=== PATIENT | female | born 1985 | race Asian ===

== ENCOUNTER 2021-10-29 18:49 | Emergency (ER) | payer OTHER ==
[~2021-10-29] VITALS: Ht 161.3 cm; Wt 46.9 kg
[2021-10-29 19:11] VITALS: BP 121/80
--- NOTE | 2021-10-29 19:52 | NUR ---
PT AMBULATED TO BED 12.
--- NOTE | 2021-10-29 19:59 | NUR ---
JOHN Moore to examine patient.
[2021-10-29] MEDS ORDERED: LIDOCAINE MPF 1% 10 MG/ML VIAL INJ ONE (20:10)
--- NOTE | 2021-10-29 21:52 | NUR ---
xr at bedside
[2021-10-29] MEDS ORDERED: ACET-10509 PO (22:00)
[2021-10-29 22:19] VITALS: BP 117/71
--- NOTE | 2021-10-29 22:19 | NUR ---
Patient discharged with v/s stable. Written and verbal after care instructions given and explained. Patient alert, oriented and verbalized understanding of instructions. Ambulatory with steady gait. All questions addressed prior to discharge. ID band removed. Patient advised to follow up with PMD. Rx of tylenol extra strength tab given. Patient educated on indication of medication including possible reaction and side effects. Opportunity to ask questions provided and answered.
== END 2021-10-29 22:19 | disposition home or self-care (01) ==
LOC: MED 18:49
DX: S61.311A Laceration without foreign body of left index finger with damage to nail, initial encounter (principal); Z79.899 Other long term (current) drug therapy; W26.0XXA Contact with knife, initial encounter; Y93.89 Activity, other specified; Y92.89 Other specified places as the place of occurrence of the external cause; Y99.8 Other external cause status
CPT/HCPCS: 11760; 73140; 99285; J2001; Q0092; 99283